=== PATIENT | female | born 1975 | race Two or more races ===

== ENCOUNTER 2024-09-02 19:21 | Emergency (ER) | payer MEDICAID, OTHER ==
[~2024-09-02] VITALS: Ht 160 cm; Wt 79.4 kg
[2024-09-02 19:28] VITALS: TEMP 97.6
[2024-09-02] MEDS: PANTOPRAZOLE 40 MG VIAL IV ONE (20:30)
[2024-09-02] MEDS ORDERED: PANTOPRAZOLE 40 MG VIAL ONE (20:54)
[2024-09-02] MEDS ORDERED: METOCLOPRAMIDE HCL 10 MG/2 ML VIAL ONE (20:54)
[2024-09-02] MEDS ORDERED: MAG HYDROX/AL HYDROX/SIMETH 30 ML UDC ONE (20:54)
[2024-09-02] MEDS: IV NS 0.9% 1,000 ML BAG IV ONE (21:00)
[2024-09-02] MEDS: MAG HYDROX/AL HYDROX/SIMETH 30 ML UDC PO ONE (21:03)
[2024-09-02] MEDS: METOCLOPRAMIDE HCL 10 MG/2 ML VIAL IV ONE (21:04)
[2024-09-02 21:24] LABS: ASPARTATE AMINOTRANSFERASE 17.0 U/L (15-37); CALCIUM, SERUM 9.2 mg/dL (8.5-10.1); CREATININE 0.9 mg/dL (0.6-1.3); SODIUM SERUM 137.0 mmol/L (136-145); TOTAL PROTEIN, SERUM 8.4 g/dL (6.4-8.2); UREA NITROGEN, BLOOD 12.0 mg/dL (7-18)
[2024-09-02 21:28] LABS: PLATELET COUNT (AUTO) 252 K/uL (150-450); RED BLOOD CELL COUNT(AUTO) 5.01 MIL/uL (4.0-5.2); RED CELL DISTRIBUTION WIDTH 20.5 % (11.5-15.0); WHITE BLOOD COUNT (AUTO) 9.5 K/uL (4.3-11.0)
[2024-09-02 21:50] LABS: PREGNANCY TEST URINE QUAL NEGATIVE (NEGATIVE)
[2024-09-02] MEDS ORDERED: METO-295 PO (22:18)
[2024-09-02 22:58] LABS: APPEARANCE,URINE CLEAR (CLEAR); BLOOD, URINE NEGATIVE Ery/uL (NEGATIVE); LEUKOCYTE ESTERASE ,URINE TRACE (NEGATIVE); NITRITE, URINE NEGATIVE (NEGATIVE); UGLUCOSE NEGATIVE (NEGATIVE)
[2024-09-02 23:13] LABS: ADD URINE CULTURE YES
[2024-09-02] MEDS ORDERED: HYDROMORPHONE 1 MG/1 ML DISP.SYRIN ONE (23:33)
[2024-09-02] MEDS ORDERED: ONDANSETRON HCL/PF 4 MG/2 ML VIAL ONE (23:33)
[2024-09-02] MEDS: HYDROMORPHONE 1 MG/1 ML DISP.SYRIN IV ONE (23:38)
[2024-09-02] MEDS: ONDANSETRON HCL/PF - ER 4 MG/2 ML VIAL IV ONE (23:38)
[2024-09-03 00:17] LABS: LACTIC ACID 0.9 mmol/L (0.4-2.0)
[2024-09-03 00:21] LABS: NT-PRO BNP 115.0 pg/mL (0-125)
[2024-09-03] MEDS ORDERED: NITR100C6 PO (01:44)
[2024-09-03] MEDS ORDERED: PANT20TA2 PO (01:44)
[2024-09-03 02:04] VITALS: BP 131/72; O2SAT 99
== END 2024-09-03 03:00 | disposition home or self-care (01) ==
LOC: ER 19:24
DX: R10.13 Epigastric pain (principal); R07.9 Chest pain, unspecified; R11.2 Nausea with vomiting, unspecified; R50.9 Fever, unspecified
CPT/HCPCS: 99285; 96374; 96375; 71045; 96361; 93005 ×2; 85025; 80048; 87040; 83605; 83690; 80076; 85378; 84703; 81001; 36415; 84484; 83880; 74176; J2765; J2405 ×2; J7030; J2470; J1171; 87086-TC